=== PATIENT | male | born 2005 | race Two or more races ===

== ENCOUNTER 2025-04-30 14:55 | Emergency (ER) | payer SELFPAY ==
[~2025-04-30] VITALS: Ht 182.9 cm; Wt 105.5 kg
[2025-04-30 14:57] VITALS: BP 139/87; TEMP 97.7
[2025-04-30] MEDS ORDERED: AMOX-117 PO (15:34)
--- NOTE | 2025-04-30 15:34 | Physician Documentation ---
History of Present Illness ~ Chief Complaint: Sore Throat Stated Complaint: SORE THROAT Time Seen by MD: 15:07 Source: patient, family Mode of Arrival: POV Exam Limitations: no limitations HPI 20-year-old male with sore throat for 3 weeks no difficulty breathing or swallowing at ER with mom. Mom brought patient in due to increased ear pain to the left ear worse last night. Patient states that the tonsils has been swollen but have not improved and then started to worsen. Mainly here due to increased ear pain Medication Reconciliation Allergies: Coded Allergies: No Known Allergies (Unverified , 04/30/25) Scheduled Amox Tr/Potassium Clavulanate (Augmentin 875-125 Tablet), 1 TAB PO Q12H Past Medical History Past Medical History: No Pertinent History Past Surgical History: no surgical history Alcohol Use: None Lives with: Family Lives In: Home Occupation: employed Review of Systems All Other Systems at this time: Reviewed and Negative ENT: Reports: see HPI Physical Exam Vital Signs: RN Vital Signs have been reviewed: Yes, Temperature: 97.7, Source: Temporal, Heart Rate: 75, Respiratory Rate: 20, BP: 139/87, Pulse Oximetry: 99, Weight: 105.500 Oxygen Flow Rate: 0 Physical Exam General: Alert, no apparent distress. HEENT: moist mucous membranes. Plus three left tonsil +2 right tonsil. Uvula midline adenopathy primarily on the right side ears within normal limits Neck: Full range of motion. Respiratory: No respiratory distress speaking in full sentences Chest: No accessory muscle use. Cardiovascular: Appears well perfused Neurologic: Oriented x4. Psychiatric: Normal mood and affect. Skin: Normal color, warm and dry. No edema, no ecchymosis. Progress Results/Orders Results/Orders Vital Signs 04/30/25 04/30/25 14:57 15:38 Temp 97.7 Pulse 75 73 Resp 20 16 B/P (MAP) 139/87 Pulse Ox 99 99 O2 Flow Rate 0 Medical Decision Making Additional information obtaine: N/A Findings Evaluated as well by my supervising physician with left tonsillar size being larger differentially peritonsillar abscess, no exudate but strep pharyngitis versus viral also differential. Due to the unilateral nature of the tonsils patient does appear well with no fevers vital signs reassuring. Patient will be discharged on antibiotics with education given to patient and mother for signs and symptoms that warrant further medical evaluation. Ear Diff. Dx: Considerations: Include: Other Eye Diff. Dx: Considerations: Include: Other Nose Diff. Dx: Considerations: Include: Other Tooth Diff. Dx: Considerations: Include: Other Throat Diff Dx: Considerations: Include: Epiglottitis, Peritonsillar abscess, Peritonsillar cellulitis, Pharyngitis-strepococcal, Pharyngitis-viral, URI Departure Time of Disposition: 15:33 Disposition: 01 HOME / SELF CARE / HOMELESS Impression: Primary Impression: Swelling of tonsil Condition: Stable Discharge Instructions: Tonsillitis Additional Instructions: Antibiotics as prescribed and follow up closely with primary care. Monitor for any new or worsening symptoms feel free to return to the ER. Referrals: NO PRIMARY CARE PROVIDER (PCP) Prescriptions Amox Tr/Potassium Clavulanate (Augmentin 875-125 Tablet) 1 Each Tablet 1 TAB PO Q12H for 10 Days, #20 TAB Prov: SALIMA CEDENO NP 04/30/25 Education Educated: Patient, Family Educated regarding: diagnosis, treatment, need for follow up Signature Scribe Signature: No scribe Attestation: The note accurately reflects work and decisions made by me.Salima MARQUEZ 04/30/25 15:34 SALIMA CEDENO NP Apr 30, 2025 15:34
[2025-04-30 15:38] VITALS: PULSE 73; RESP 16; O2SAT 99
== END 2025-04-30 15:43 | disposition home or self-care (01) ==
LOC: ER 14:56
DX: R22.1 Localized swelling, mass and lump, neck (principal)
CPT/HCPCS: 99283